=== PATIENT | female | born 1980 | race African-American/Black ===

== ENCOUNTER 2019-01-22 06:15 | Emergency (ER) | payer BC ==
--- OUTSIDE RECORDS SUMMARY | 2019-01-22 06:18 | XMS REPORT | Continuity of Care Document ---
:1980 Author Organization [facility] Information [place] Care Team Providers Name Role Phone [facility] Information [place] Unavailable Unavailable Problems Problem Status Onset Classification Date Comments Source Date Reported Morbid obesity 09/15/2018 [facility] due to excess 8 [facility] calories MORBID Active [facility] OBESITY-E66.01 8 [facility] [address], MORBID Active [facility] OBESITY 8 [place] GERD Active [address] Bariatric 09/15/2018 [facility] surgery status City Morbid obesity Active Problem 11/03/2018 [facility] ILLNESS, Active [facility] UNSPECIFIED [place] Medications Medication Details Route Status Patient Ordering Order Source Instructions Provider Date Acetaminophen 24 15 ml, PO, Q4H, Active MG/ML / Codeine PRN Pain, X 7 2017 [facility] Phosphate 2.4 day, # 120 mL, City MG/ML Oral 0 Refill(s) Solution Ofirmev 1,000 mg, 100 No Longer mL, Route: IV, Active [address] [place] [address] Drug form: INJ, City Q6H, Dosing Weight 115.17, kg, for > or=50 kg, Start date: 12/31/17 15:00:00 CDT, Duration: 4 doses or times, Stop date: 01/01/18 9:00:00 CDTNotes: Infuse over 15 minutes Do not exceed 4gm/day of acetaminophen MEDICATION WASTE Product Size: 1000 mg Product Wasted: ___ mg Ketorolac 30 mg, 1 mL, No Longer Route: IVP, Active [address] [place] [address] Drug form: INJ, City Q6H, Dosing Weight 115.17, kg, Start date: 12/31/17 15:00:00 CDT, Duration: 6 doses or times, Stop date: 01/01/18 21:00:00 CDTNotes: (Same as:Toradol) IV bolus must be given >15 seconds. Give IM administration slowly and deeply into the muscle. Not for use > 4 days MEDICATION WASTE Product Size: 30 mg Product Wasted: ___ mg propofol (ANES) Route: IV, Drug Inactive form: INJ, 2017 [facility] ONCE, Stop [facility] date: 12/31/17 10:40:00 CDT neostigmine (ANES) Route: IV, Drug Inactive form: INJ, 2017 [facility] , Stop [facility] date: 12/31/17 9:00:00 CDT glycopyrrolate Route: IV, Drug Inactive (ANES) form: INJ, 2017 [facility] , Stop [facility] date: 12/31/17 9:00:00 CDT ketOROLAC (ANES) IV, ONCE Inactive 2017 [facility] Protonix 40 mg, 1 tab, No Longer Route: PO, Drug Active 2017 [facility] form: ECTAB, [facility] Daily, Dosing Weight 115.17, kg, Start date: 12/31/17 9:00:00 CDT, Stop date: 01/29/18 9:00:00 CDTNotes: Tablet should not be chewed or crushed. (Same as: Protonix) Dilaudid 2 mg, 1 tab, No Longer Route: PO, Drug Active 2017 [facility] form: TAB, Q4H, [facility] Dosing Weight 115.17, kg, PRN Pain Score 7-10, Start date: 12/31/17 8:51:00 CDT, Stop date: 01/30/18 8:50:00 CDTNotes: (Same as: Dilaudid) Tramadol 50 mg, 1 tab, No Longer Route: PO, Drug Active 2017 [facility] form: TAB, Q4H, [facility] Dosing Weight 115.17, kg, PRN Pain Score 4-6, Start date: 12/31/17 8:51:00 CDT, Duration: 30 day, Stop date: 01/30/18 8:50:00 CDTNotes: Not to exceed 400mg/day. (Same As: Ultram) Metoprolol 5 mg, 5 mL, No Longer Route: IVP, Active [address] [place] [address] Drug form: INJ, City PRN, Dosing Weight 115.17, kg, PRN Hypertension, Systolic > 180; Diastolic > 100, Start date: 12/31/17 8:51:00 CDT, Duration: 30 day, Stop date: 01/30/18 8:50:00 CDTNotes: (Same as: Lopressor) Push over 2 minutes Promethazine 12.5 mg, 0.5 No Longer mL, Route: IM, Active [address] [place] [address] Drug form: INJ, City Q4H, Dosing Weight 115.17, kg, PRN Nausea & Vomiting, Start date: 12/31/17 8:51:00 CDT, Duration: 30 day, Stop date: 01/30/18 8:50:00 CDTNotes: Do not give IV push. (Same as: Phenergan) Ondansetron 4 mg, 1 tab, No Longer Route: PO, Drug Active [address] [place] [address] form: TABDIS, City Q6H, Dosing Weight 115.17, kg, PRN Nausea & Vomiting, Start date: 12/31/17 8:51:00 CDT, Duration: 30 day, Stop date: 01/30/18 8:50:00 CDTNotes: (Same as: Zofran ODT) Calcium Chloride 1,000 mL, Rate: No Longer 0.0014 MEQ/ML / 150 ml/hr, Active [address] [place] [address] Potassium Chloride Infuse over: [facility] 0.004 MEQ/ML / 6.7 hr, Route: Sodium Chloride IV, Dosing 0.103 MEQ/ML / Weight 115.17 Sodium Lactate kg, Total 0.028 MEQ/ML Volume: 1,000, Injectable Start date: Solution 12/31/17 8:51:00 CDT, Duration: 30 day, Stop date: 01/30/18 8:50:00 CDT, 2.32, m2 Acetaminophen 21.7 15 mL, Route: No Longer MG/ML / PO, Drug Form: [address] Hydrocodone SOLN, Dosing City Bitartrate 0.5 Weight 115.17, MG/ML Oral kg, Q4H, PRN Solution Pain Score 4-6, Start date: 12/31/17 8:51:00 CDT, Duration: 30 day, Stop date: 01/30/18 8:50:00 CDTNotes: Do not exceed 4gm/day of acetaminophen. (Same as: [place] 325/7.5) dexamethasone Route: IV, Drug Inactive (ANES) form: INJ, 2017 [facility] , Stop City date: 12/31/17 8:50:00 CDT metoclopramide Route: IV, Drug Inactive (ANES) form: INJ, 2017 [facility] , Stop City date: 12/31/17 8:50:00 CDT lidocaine (ANES) Route: IV, Drug Inactive form: INJ, 2017 [facility] , Stop City date: 12/31/17 8:30:00 CDT propofol (ANES) Route: IV, Drug Inactive form: INJ, 2017 [facility] , Stop City date: 12/31/17 8:30:00 CDT rocuronium (ANES) Route: IV, Drug Inactive form: INJ, 2017 [facility] , Stop City date: 12/31/17 8:30:00 CDT Meperidine 12.5 mg, Route: Inactive IVP, Q30Min, 2017 [facility] Dosing Weight [facility] 115.17, kg, PRN Other -See Comment, For shivering, Start date: 12/31/17 8:18:00 CDT, Duration: 2 doses or times, Stop date: Limited # of times Ondansetron 4 mg, Route: Inactive IVP, ONCE, 2017 [facility] Weight [facility] 115.17, kg, PRN Nausea & Vomiting, Start date: 12/31/17 8:18:00 CDT Promethazine 6.25 mg, Route: Inactive IVPB, ONCE, 2017 [facility] Dosing Weight [facility] 115.17, kg, PRN Nausea & Vomiting, Start date: 12/31/17 8:18:00 CDT Morphine 2 mg, Route: Inactive IVP, Q5Min, 2017 [facility] Weight [facility] 115.17, kg, PRN Pain Score 4-6, Start date: 12/31/17 8:18:00 CDT, Duration: 5 doses or times, Stop date: Limited # of times Hydromorphone 0.5 mg, Route: Inactive IVP, Q10Min, 2017 [facility] 115.17, kg, PRN Pain Score 7-10, Start date: 12/31/17 8:18:00 CDT, Duration: 4 doses or times, Stop date: Limited # of times Naloxone 0.4 mg, Route: Inactive IVP, Q2MIN, 2017 [facility] Weight [facility] 115.17, kg, PRN Narcotic Reversal, Start date: 12/31/17 8:18:00 CDT, Duration: 8 doses or times, Stop date: Limited # of times Flumazenil 0.2 mg, Route: Inactive IVP, PRN, 2017 [facility] Weight [facility] 115.17, kg, PRN Benzodiazepine Reversal, Initial dose, Start date: 12/31/17 8:18:00 CDT, Duration: 30 day, Stop date: 01/30/18 8:17:00 CDT Metoprolol 1 mg, Route: Inactive IVP, Q5Min, 2017 [facility] Weight [facility] 115.17, kg, PRN Other -See Comment, Start date: 12/31/17 8:18:00 CDT, Duration: 5 doses or times, Stop date: Limited # of times Labetalol 10 mg, Route: Inactive [facility] IVP, Q5Min, 2017 [facility] Weight [facility] 115.17, kg, PRN Elevated BP, Start date: 12/31/17 8:18:00 CDT, Duration: 5 doses or times, Stop date: Limited # of times fentaNYL (ANES) Route: IV, Drug Inactive form: INJ, 2017 [facility] , Stop City date: 12/31/17 8:15:00 CDT famotidine (ANES) Route: IV, Drug Inactive form: INJ, 2017 [facility] , Stop City date: 12/31/17 8:15:00 CDT midazolam (ANES) Route: IV, Drug Inactive form: SOLN, 2017 [facility] , Stop City date: 12/31/17 8:15:00 CDT acetaminophen Route: IV, Drug Inactive (ANES) 10 mg form: INJ, 2017 [facility] Start date: [facility] 12/31/17 8:06:00 CDT, Stop date: 12/31/17 9:06:00 CDT Zofran ODT 4 mg, Route: Inactive PO, ONCALL, 2017 [facility] Dosing Weight [facility] 115.17, kg, Start date: 12/31/17 8:00:00 CDT, Duration: 30 day, Stop date: 01/30/18 7:59:00 CDT cefOXitin (ANES) Route: IV, Drug Inactive 2000 mg form: INJ, 2017 [facility] Start date: [facility] 12/31/17 7:47:00 CDT, Stop date: 12/31/17 8:47:00 CDT Lactated Ringers Route: IV, Inactive Injection IV Total Volume: [address] [place] [address] (ANES) 1000 mL 1,000, Start City date: 12/31/17 7:39:00 CDT, Stop date: 12/31/17 8:39:00 CDT heparin 5,000 unit, 1 Inactive mL, Route: [address] [place] [address] SUB-Q, Drug [facility] form: INJ, PRE OP, Start date: 12/31/17 0:00:00 CDT, Stop date: 12/31/17 23:00:00 CDTNotes: porcine heparin Mefoxin + Sodium 2 gm, Route: No Longer Chloride 0.9% IV IVPB, PRE OP, Active [address] [place] [address] 100 mL Start date: [facility] 12/31/17 0:00:00 CDT, Stop date: 12/31/17 23:00:00 CDT, ABX Indication: Surgical ProphylaxisNote s: (Same As: Mefoxin) MEDICATION WASTE Product Size: 2000 mg Product Wasted: ___ mg ferrous sulfate 325 mg, PO, 0 Active Refill(s) 2017 [facility] Hydrochlorothiazid 12.5 mg, PO, Active e Daily, 0 2017 [facility] Refill(s) [facility] Allergies, Adverse Reactions, Alerts No Known Medication Allergies Immunizations No Data Provided for This Section Results Order Name Results Value Reference Date Interpretation Comments Source Range ELECTROLYTE AGAP 17.2 10.0 - 01/01 S 20.0 /2017 [facility] ELECTROLYTE Sodium Lvl 144 135 - 145 01/01 S /2017 [facility] ELECTROLYTE Chloride Lvl 105 95 - 109 01/01 S [facility] ELECTROLYTE Potassium 4.2 3.5 - 5.1 01/01 S Lvl /2017 [facility] ELECTROLYTE Calcium Lvl 8.9 8.5 - 10.5 01/01 S [facility] ELECTROLYTE eGFR 131 01/01 Result Comment: The [facility] eGFR is City calculated using the CKD-EPI formula. In most young, healthy individuals the eGFR will be >90 mL/min/1.73m2 . The eGFR declines with age. An eGFR of 60-89 may be normal in some populations, particularly the elderly, for whom the CKD-EPI formula has not been extensively validated. Use of the eGFR is not recommended in the following populations:< br/>
Johanna viduals with unstable creatinine concentration s, including patients and those with serious co-morbid conditions.<b r/>
Patie nts with extremes in muscle mass or diet.

The data above are obtained from the National Kidney Disease Education Program (NKDEP) which additionally recommends that when the eGFR is used in patients with extremes of body mass index for purposes of drug dosing, the eGFR should be multiplied by the estimated BMI. ELECTROLYTE CO2 26 24 - 32 01/01 S [facility] ELECTROLYTE Creatinine 0.62 0.50 - 01/01 S Lvl 1.40 [facility] ELECTROLYTE Glucose Lvl 98 70 - 99 01/01 S [facility] ELECTROLYTE BUN 8 7 - 22 01/01 [facility] HEMATOLOGY Microcyte 1+ None Seen 01/01 *ABN* /2017 [facility] (01/01/18 4:16 AM) [facility] HEMATOLOGY Segs 78.9 45.0 - 01/01 MH 75.0 [facility] HEMATOLOGY Lymphocytes 12.6 20.0 - 01/01 MH 40.0 [facility] HEMATOLOGY Monocytes 8.3 2.0 - 12.0 01/01 [facility] HEMATOLOGY Monocytes # 0.9 0.0 - 0.8 01/01 [facility] HEMATOLOGY Segs-Bands # 8.1 1.5 - 8.1 01/01 [facility] HEMATOLOGY Lymphocytes 1.3 1.0 - 5.5 01/01 MH # /2017 [facility] HEMATOLOGY Basophils 0.2 0.0 - 1.0 01/01 [facility] HEMATOLOGY RBC 4.62 4.20 - 01/01 MH 5.40 /2017 [facility] HEMATOLOGY WBC 10.3 3.7 - 10.4 01/01 /2017 [facility] HEMATOLOGY Hct 36.4 36.0 - 01/01 MH 48.0 /2017 [facility] HEMATOLOGY Hgb 12.2 12.0 - 01/01 MH 16.0 /2017 [facility] HEMATOLOGY MCHC 33.4 32.0 - 01/01 MH 36.0 /2017 [facility] HEMATOLOGY MCH 26.3 27.0 - 01/01 MH 31.0 [facility] HEMATOLOGY MCV 78.8 80.0 - 01/01 MH 98.0 /2017 [facility] HEMATOLOGY RDW 14.3 11.5 - 01/01 MH 14.5 [facility] HEMATOLOGY MPV 10.7 7.4 - 10.4 01/01 /2017 [facility] HEMATOLOGY Platelet 162 133 - 450 01/01 /2017 [facility] BLOOD BANK Antibody Negative 12/23 RESULTS Scrn (12/23/17 1:28 PM) /2017 [facility] BLOOD BANK ABO/Rh B POS 12/23 RESULTS /2017 [facility] CHEM PANEL VITAMIN B1 111.9 66.5 - 12/23 Result (THIAMINE) 200.0 /2017 Comment: [facility] WHOLE BLOOD
[facility] test was developed and its performance characteristi cs
determ ined by [facility]. It has not been cleared or
approv ed by the Food and Drug Administratio n.
Perfor med At: [facility] [place]
[address], [place] [id number]< br/>Lee Levi MD Ph:[phone] ELECTROLYTE AGAP 13.9 10.0 - 12/23 MH S 20.0 [facility] ELECTROLYTE B/C Ratio 23 6 - 25 12/23 S [facility] ELECTROLYTE Globulin 4.3 2.7 - 4.2 12/23 S [facility] ELECTROLYTE A/G Ratio 1.1 0.7 - 1.6 12/23 S [facility] ELECTROLYTE Calcium Lvl 9.8 8.5 - 10.5 12/23 S [facility] ELECTROLYTE Albumin Lvl 4.7 3.5 - 5.0 12/23 MH S [facility] ELECTROLYTE Chloride Lvl 100 95 - 109 12/23 MH S [facility] ELECTROLYTE CO2 29 24 - 32 12/23 MH S [facility] ELECTROLYTE Sodium Lvl 139 135 - 145 12/23 S [facility] ELECTROLYTE BUN 17 7 - 22 12/23 MH S [facility] ELECTROLYTE Potassium 3.9 3.5 - 5.1 12/23 MH S Lvl /2017 [facility] ELECTROLYTE eGFR 119 12/23 Result S Comment: The [facility] eGFR is City calculated using the CKD-EPI formula. In most young, healthy individuals the eGFR will be >90 mL/min/1.73m2 . The eGFR declines with age. An eGFR of 60-89 may be normal in some populations, particularly the elderly, for whom the CKD-EPI formula has not been extensively validated. Use of the eGFR is not recommended in the following populations:< br/>
Johanna viduals with unstable creatinine concentration s, including patients and those with serious co-morbid conditions.<b r/>
Patie nts with extremes in muscle mass or diet.

The data above are obtained from the National Kidney Disease Education Program (NKDEP) which additionally recommends that when the eGFR is used in patients with extremes of body mass index for purposes of drug dosing, the eGFR should be multiplied by the estimated BMI. ELECTROLYTE AST 18 0 - 37 12/23 MH S [facility] ELECTROLYTE Creatinine 0.74 0.50 - 12/23 S Lvl 1.40 [facility] ELECTROLYTE Glucose Lvl 88 70 - 99 12/23 S [facility] ELECTROLYTE ALT 35 0 - 65 12/23 MH S [facility] ELECTROLYTE Total 9.0 6.4 - 8.4 12/23 S Protein /2017 [facility] ELECTROLYTE Alk Phos 76 39 - 136 12/23 S [facility] ELECTROLYTE Bili Total 0.4 0.2 - 1.3 12/23 S [facility] ENDOCRINOLO S Preg Negative Negative 12/23 GY *NA* /2017 [facility] (12/23/17 1:25 PM) [facility] HEMATOLOGY INR 0.91 0.85 - 12/23 MH 1.17 [facility] HEMATOLOGY PT 12.3 12.0 - 12/23 MH 14.7 [facility] HEMATOLOGY PTT 27.0 22.9 - 12/23 35.8 /2017 [facility] HEMATOLOGY Platelet 181 133 - 450 12/23 /2017 [facility] HEMATOLOGY MPV 9.5 7.4 - 10.4 12/23 /2017 [facility] HEMATOLOGY RDW 14.6 11.5 - 12/23 MH 14.5 /2017 [facility] HEMATOLOGY MCHC 32.5 32.0 - 12/23 MH 36.0 /2017 [facility] HEMATOLOGY MCV 80.0 80.0 - 12/23 MH 98.0 /2017 [facility] HEMATOLOGY Hgb 13.9 12.0 - 12/23 MH 16.0 /2017 [facility] HEMATOLOGY MCH 26.0 27.0 - 12/23 MH 31.0 /2017 [facility] HEMATOLOGY Hct 42.7 36.0 - 12/23 MH 48.0 /2017 [facility] HEMATOLOGY RBC 5.34 4.20 - 12/23 MH 5.40 /2017 [facility] HEMATOLOGY WBC 10.0 3.7 - 10.4 12/23 [facility] HEMATOLOGY Lymphocytes 2.1 1.0 - 5.5 12/23 # /2017 [facility] HEMATOLOGY Segs-Bands # 6.9 1.5 - 8.1 12/23 [facility] HEMATOLOGY Basophils 0.4 0.0 - 1.0 12/23 [facility] HEMATOLOGY Eosinophils 1.5 0.0 - 4.0 12/23 [facility] HEMATOLOGY Lymphocytes 21.3 20.0 - 12/23 MH 40.0 [facility] HEMATOLOGY Monocytes 8.0 2.0 - 12.0 12/23 [facility] HEMATOLOGY Segs 68.8 45.0 - 12/23 MH 75.0 [facility] HEMATOLOGY Eosinophils 0.2 0.0 - 0.5 12/23 # /2017 [facility] HEMATOLOGY Monocytes # 0.8 0.0 - 0.8 12/23 [facility] IMMUNOLOGY HIV Ag/Ab Negative Negative 12/23 4th Gen *NA* /2017 [facility] (12/23/17 1:25 PM) [facility] URINE AND UA Nitrite Negative Negative 12/23 STOOL (12/23/17 1:00 PM) /2017 [facility] URINE AND UA Blood Negative Negative 12/23 STOOL (12/23/17 1:00 PM) /2017 [facility] URINE AND UA Bili Negative Negative 12/23 STOOL *NA* /2017 [facility] (12/23/17 1:00 PM) [facility] URINE AND UA Leuk Est Negative Negative 12/23 STOOL (12/23/17 1:00 PM) /2017 [facility] URINE AND UA Color Light Yellow Yellow 12/23 STOOL *NA* /2017 [facility] (12/23/17 1:00 PM) [facility] URINE AND UA Protein Negative Negative 12/23 STOOL mg/dL mg/dL /2017 [facility] URINE AND UA Glucose Negative Negative 12/23 STOOL mg/dL mg/dL /2017 [facility] URINE AND UA Turbidity Clear Clear 12/23 STOOL (12/23/17 1:00 PM) /2017 [facility] URINE AND UA Spec Grav 1.018 <=1.030 12/23 STOOL /2017 [facility] URINE AND UA pH 6.0 5.0 - 8.0 12/23 STOOL /2017 [facility] URINE AND UA Ketones Negative 12/23 STOOL /2017 [facility] URINE AND UA <=1.0 0.1 - 1.0 12/23 STOOL Urobilinogen mg/dL /2017 [facility] URINE AND Micro? Not Indicated 12/23 STOOL *NA* /2017 [facility] (12/23/17 1:00 PM) [facility] ELECTROLYTE POC Sodium 139 135 - 145 04 MH S /2017 [facility] ELECTROLYTE POC 3.9 3.5 - 5.1 11/03 MH S Potassium /2017 [facility] ELECTROLYTE POC Glucose 87 70 - 99 11/03 MH S /2017 [facility] ELECTROLYTE POC 14.6 12.0 - 04 MH S Hemoglobin 16.0 [facility] ELECTROLYTE POC 43.0 36.0 - 11/03 MH S Hematocrit 48.0 [facility] Pathology Reports No Data Provided for This Section Diagnostic Reports Report Value Date Source Chest 2 views DX STUDY: Chest, 2 views. 12/23/2017 [facility] COMPARISON: None HISTORY: Coughing - coughing. FINDINGS: The lungs are clear. No dense focal consolidation is seen. No pleural effusion is seen. No pneumothorax is seen. The heart is normal in size. The osseous structures are unremarkable. IMPRESSION: No acute cardiopulmonary process. Consultation Notes No Data Provided for This Section Discharge Summaries No Data Provided for This Section History and Physicals No Data Provided for This Section Vital Signs Vital Sign Value Date Comments Source Systolic (mm Hg) 154 01/01/2018 [facility] Diastolic (mm Hg) 80 01/01/2018 [facility] Heart Rate 79 01/01/2018 [facility] Respitory Rate 18 01/01/2018 [facility] Temperature Oral (F) 98.6 F 01/01/2018 [facility] Respitory Rate 16 01/01/2018 [facility] Systolic (mm Hg) 144 01/01/2018 [facility] Diastolic (mm Hg) 89 01/01/2018 [facility] Heart Rate 75 01/01/2018 [facility] Temperature Oral (F) 98.6 F 01/01/2018 [facility] Heart Rate 83 01/01/2018 [facility] Systolic (mm Hg) 152 01/01/2018 [facility] Diastolic (mm Hg) 89 01/01/2018 [facility] Respitory Rate 18 01/01/2018 [facility] Temperature Oral (F) 98.7 F 01/01/2018 [facility] BMI Calculated 43.58 12/31/2017 [facility] Weight 115.17 12/31/2017 [facility] Height 162.56 cm 12/31/2017 [facility] Height 162.56 cm 12/23/2017 [facility] Weight 112.727 12/23/2017 [facility] BMI Calculated 42.66 12/23/2017 [facility] BMI Calculated 42.31 11/03/2017 [facility] Height 162.56 cm 11/03/2017 [facility] Weight 111.818 11/03/2017 [facility] Encounters Location Location Encounter Encounter Reason Attending ADM DC Status Source Details Type Number For Provider Date Date Visit [facility] [id number] Andrew 11/03 11/03 [facility] Outpatient [facility] Inpatient [id number] [facility]/31 [facility] Outpatient [id number] 02/26 [facility] PreReg [id number] Andrew 02/26 04/16 [facility] Baudilio [facility] Procedures Procedure Code Date Perfomer Comments Source Appendectomy [id number] [facility] Bilateral tubal [id number] [facility] ligation [facility] Caesarean section [id number] [facility] Upper GI endoscopy [id number] [facility] Assessment and Plan No Data Provided for This Section Plan of Care No Data Provided for This Section Social History Social History Date Source Social History TypeResponse 12/23/2017 [facility] Alcohol Current, Frequency: 1-2 times per week. Previous treatment: None. Alcohol use interferes with work or home: No. Drinks more than intended: No. Others hurt by drinking: No. Ready to change: No. Household alcohol concerns: No. Smoking Status Former smoker; Ready to change: No; Concerns about tobacco use in household: No ; Exposure to Tobacco Smoke None; Cigarette Smoking Last 365 Days No; Reg Smoking Cessation Counseling No entered on: 12/31/17 Family History No Data Provided for This Section Advance Directives No Data Provided for This Section Functional Status No Data Provided for This Section
--- OUTSIDE RECORDS SUMMARY | 2019-01-22 06:19 | XMS REPORT | Summary of Care ---
:1980 Author Organization [facility] Address [address] [place] [address]- Encounter HQ Jayceer_raza(FIN) [id number] Date(s): 02/26/18 - 02/26/[address] [address]- Encounter Diagnosis Morbid (severe) obesity due to excess calories (Final) - 03/05/18 Bariatric surgery status (Final) - Discharge Disposition: Home or Self Care Attending Physician: Andrew Astudillo MD Referring Physician: Andrew Astudillo MD Vital Signs No data available for this section Problem List Condition Effective Dates Status Health Status Informant Morbid obesity(Confirmed) Active Allergies, Adverse Reactions, Alerts Substance Reaction Severity Status NKDA Active Medications No data available for this section Results No data available for this section Immunizations No data available for this section Procedures Procedure Date Related Diagnosis Body Site Status Appendectomy Completed Bilateral tubal ligation Completed Caesarean section Completed Upper GI endoscopy Completed Social History Social History Type Response Alcohol Current, Frequency: 1-2 times per week. Previous treatment: None. Alcohol use interferes with work or home: No. Drinks more than intended: No. Others hurt by drinking: No. Ready to change: No. Household alcohol concerns: No. Smoking Status Former smoker; Ready to change: No; Concerns about tobacco use in household: No; Exposure to Tobacco Smoke None; Cigarette Smoking Last 365 Days No; Reg Smoking Cessation Counseling No entered on: 12/31/17 Assessment and Plan No data available for this section
--- OUTSIDE RECORDS SUMMARY | 2019-01-22 06:19 | XMS REPORT | Summary of Care ---
:1980 Author Organization [facility] Address [address] [place] [address]- Encounter HQ Jayceer_raza(FIN) [id number] Date(s): 02/26/18 - 04/16/[address] [address]- Attending Physician: Andrew Astudillo MD Referring Physician: [...]
--- OUTSIDE RECORDS SUMMARY | 2019-01-22 06:19 | XMS REPORT ---
:1980 Author [facility] Address [address] [place] [address] Dr. Garduno [address] [place] [address] Care Team Providers Name Role Phone Unavailable Unavailable Unavailable Payers Payer Name Policy Type Policy Number Effective Date Expiration Date Problems This patient has no known problems. Allergies, Adverse Reactions, Alerts This patient has no known allergies or adverse reactions. Medications This patient has no known medications.
--- OUTSIDE RECORDS SUMMARY | 2019-01-22 06:19 | XMS REPORT | Summary of Care ---
:1980 Author Organization [facility] Address [address] [place] [id number]- Encounter HQ Beni(BRANDI) [id number] Date(s): 11/03/17 - 11/03/[address] [address]- Discharge Disposition: Home or Self Care Attending Physician: Andrew Astudillo MD Admitting Physician: Andrew Astudillo MD Referring Physician: Andrew Astudillo MD Vital Signs Most recent to oldest [Reference Range]: 1 Height 162.56 cm (11/03/17 10:07 AM) Weight 111.818 kg (11/03/17 10:07 AM) Body Mass Index 42.31 m2 (11/03/17 10:07 AM) Problem List No data available for this section Allergies, Adverse Reactions, Alerts Substance Reaction Severity Status NKDA Active Medications ferrous sulfate 325 mg, PO, 0 Refill(s) Start Date: 11/03/17 Status: Orderedhydrochlorothiazide 12.5 mg, PO, Daily, 0 Refill(s) Start Date: 11/03/17 Status: Ordered Results ELECTROLYTES Most recent to oldest [Reference Range]: 1 POC Sodium [135-145 mEq/L] 139 mEq/L (11/03/17 10:24 AM) POC Potassium [3.5-5.1 mEq/L] 3.9 mEq/L (11/03/17 10:24 AM) CHEM PANEL Most recent to oldest [Reference Range]: 1 POC Glucose [70-99 mg/dL] 87 mg/dL (11/03/17 10:24 AM) HEMATOLOGY Most recent to oldest [Reference Range]: 1 POC Hemoglobin [12.0-16.0 g/dL] 14.6 g/dL (11/03/17 10:24 AM) POC Hematocrit [36.0-48.0 %] 43.0 % (11/03/17 10:24 AM) Immunizations No data available for this section Procedures No data available for this section Social History No data available for this section Assessment and Plan No data available for this section
--- OUTSIDE RECORDS SUMMARY | 2019-01-22 06:19 | XMS REPORT | Summary of Care ---
:[address] [facility] Address [address] [place] [address]- Encounter HQ Beni(BRANDI) [id number] Date(s): 12/31/17 - 01/01/[address] [address]- Discharge Disposition: Home or Self Care Attending Physician: Andrew Astudillo MD Admitting Physician: Andrew Astudillo MD Referring Physician: Andrew Astudillo MD Vital Signs Most recent to oldest 1 2 3 [Reference Range]: Height 162.56 cm 162.56 cm (12/31/17 5:35 AM) (12/23/17 1:05 PM) Temperature Oral [96.4-99.1 98.6 DegF 98.6 DegF 98.7 DegF DegF] (01/01/18 12:09 PM) (01/01/18 7:30 AM) (01/01/18 4:00 AM) Blood Pressure [90-140/60-90 154/80 mmHg 144/89 mmHg 152/89 mmHg mmHg] *HI* *HI* *HI* (01/01/18 12:09 PM) (01/01/18 7:30 AM) (01/01/18 5:51 AM) Respiratory Rate [14-20 BRMIN] 18 BRMIN 16 BRMIN 18 BRMIN (01/01/18 12:09 PM) (01/01/18 7:30 AM) (01/01/18 4:00 AM) Peripheral Pulse Rate [60-100 79 bpm 75 bpm 83 bpm bpm] (01/01/18 12:09 PM) (01/01/18 7:30 AM) (01/01/18 5:51 AM) Weight 115.17 kg 112.727 kg (12/31/17 5:35 AM) (12/23/17 1:05 PM) Body Mass Index 43.58 m2 42.66 m2 (12/31/17 5:35 AM) (12/23/17 1:05 PM) Problem List Condition Effective Dates Status Health Status Informant Morbid obesity(Confirmed) Active Allergies, Adverse Reactions, Alerts Substance Reaction Severity Status NKDA Active Medications acetaminophen (ANES) 10 mg Route: IV, Drug form: INJ, Start date: 12/31/17 8:06:00 CDT, Stop date: 9:06:00 CDT Start Date: 12/31/17 Stop Date: 12/31/17 Status: Completedacetaminophen-codeine 120 mg-12 mg/5 mL oral liquid 15 ml, PO, Q4H, PRN Pain, X 7 day, # 120 mL, 0 Refill(s) Start Date: 01/01/18 Stop Date: 01/08/18 Status: Orderedacetaminophen-hydrocodone 325 mg-7.5 mg/15 mL oral solution 15 mL, Route: PO, Drug Form: SOLN, Dosing Weight 115.17, kg, Q4H, PRN Pain Score 4-6, Start date: 12/31/17 8:51:00 CDT, Duration: 30 day, Stop date: 8:50:00 CDT Notes: Do not exceed 4gm/day of acetaminophen. (Same as: [place] 325/7.5) Start Date: 12/31/17 Stop Date: 01/01/18 Status: DiscontinuedANES flumazenil 0.2 mg, Route: IVP, PRN, Dosing Weight 115.17, kg, PRN Benzodiazepine Reversal, Initial dose, Start date: 12/31/17 8:18:00 CDT, Duration: 30 day, Stop date: 8:17:00 CDT Start Date: 12/31/17 Stop Date: 12/31/17 Status: DiscontinuedANES HYDROmorphone 0.5 mg, Route: IVP, Q10Min, Dosing Weight 115.17, kg, PRN Pain Score 7-10, Start date: 12/31/17 8:18:00 CDT, Duration: 4 doses or times, Stop date: Limited # of times Start Date: 12/31/17 Stop Date: 12/31/17 Status: DiscontinuedANES labetalol 10 mg, Route: IVP, Q5Min, Dosing Weight 115.17, kg, PRN Elevated BP, Start date : 12/31/17 8:18:00 CDT, Duration: 5 doses or times, Stop date: Limited # of times Start Date: 12/31/17 Stop Date: 12/31/17 Status: DiscontinuedANES meperidine 12.5 mg, Route: IVP, Q30Min, Dosing Weight 115.17, kg, PRN Other -See Comment, For shivering, Start date: 12/31/17 8:18:00 CDT, Duration: 2 doses or times, Stop date: Limited # of times Start Date: 12/31/17 Stop Date: 12/31/17 Status: DiscontinuedANES metoprolol 1 mg, Route: IVP, Q5Min, Dosing Weight 115.17, kg, PRN Other -See Comment, Start date: 12/31/17 8:18:00 CDT, Duration: 5 doses or times, Stop date: Limited # of times Start Date: 12/31/17 Stop Date: 12/31/17 Status: DiscontinuedANES morphine Sulfate 2 mg, Route: IVP, Q5Min, Dosing Weight 115.17, kg, PRN Pain Score 4-6, Start date: 12/31/17 8:18:00 CDT, Duration: 5 doses or times, Stop date: Limited # of times Start Date: 12/31/17 Stop Date: 12/31/17 Status: DiscontinuedANES naloxone 0.4 mg, Route: IVP, Q2MIN, Dosing Weight 115.17, kg, PRN Narcotic Reversal, Start date: 12/31/17 8:18:00 CDT, Duration: 8 doses or times, Stop date: Limited # of times Start Date: 12/31/17 Stop Date: 12/31/17 Status: DiscontinuedANES ondansetron 4 mg, Route: IVP, ONCE, Dosing Weight 115.17, kg, PRN Nausea & Vomiting, Start date: 12/31/17 8:18:00 CDT Start Date: 12/31/17 Stop Date: 12/31/17 Status: DiscontinuedANES promethazine 6.25 mg, Route: IVPB, ONCE, Dosing Weight 115.17, kg, PRN Nausea & Vomiting , Start date: 12/31/17 8:18:00 CDT Start Date: 12/31/17 Stop Date: 12/31/17 Status: DiscontinuedcefOXitin (ANES) 2000 mg Route: IV, Drug form: INJ, Start date: 12/31/17 7:47:00 CDT, Stop date: 8:47:00 CDT Start Date: 12/31/17 Stop Date: 12/31/17 Status: Completeddexamethasone (ANES) Route: IV, Drug form: INJ, ONCE, Stop date: 12/31/17 8:50:00 CDT Start Date: 12/31/17 Stop Date: 12/31/17 Status: CompletedDilaudid 2 mg, 1 tab, Route: PO, Drug form: TAB, Q4H, Dosing Weight 115.17, kg, PRN Pain Score 7-10, Start date: 12/31/17 8:51:00 CDT, Stop date: 01/30/18 8:50:00 CDT Notes: (Same as: Dilaudid) Start Date: 12/31/17 Stop Date: 01/01/18 Status: Discontinuedfamotidine (ANES) Route: IV, Drug form: INJ, ONCE, Stop date: 12/31/17 8:15:00 CDT Start Date: 12/31/17 Stop Date: 12/31/17 Status: CompletedfentaNYL (ANES) Route: IV, Drug form: INJ, ONCE, Stop date: 12/31/17 8:15:00 CDT Start Date: 12/31/17 Stop Date: 12/31/17 Status: Completedglycopyrrolate (ANES) Route: IV, Drug form: INJ, ONCE, Stop date: 12/31/17 9:00:00 CDT Start Date: 12/31/17 Stop Date: 12/31/17 Status: Completedheparin 5,000 unit, 1 mL, Route: SUB-Q, Drug form: INJ, PRE OP, Start date: 12/31/17 0: 00:00 CDT, Stop date:12/31/17 23:00:00 CDT Notes: porcine heparin Start Date: 12/31/17 Stop Date: 12/31/17 Status: CompletedketOROLAC 30 mg, 1 mL, Route: IVP, Drug form: INJ, Q6H, Dosing Weight 115.17, kg, Start date: 12/31/17 15:00:00 CDT, Duration: 6 doses or times, Stop date: 01/01/18 21: 00:00 CDT Notes: (Same as:Toradol) IV bolus must be given >15 seconds. Give IM administration slowly and deeply into the muscle.Not for use > 4 days MEDICATION WASTE Product Size: 30 mgProduct Wasted: ___ mg Start Date: 12/31/17 Stop Date: 01/01/18 Status: DiscontinuedketOROLAC (ANES) IV, ONCE Start Date: 12/31/17 Stop Date: 12/31/17 Status: CompletedLactated Ringers Injection IV (ANES) 1000 mL Route: IV, Total Volume: 1,000, Start date: 12/31/17 7:39:00 CDT, Stop date: 8:39:00 CDT Start Date: 12/31/17 Stop Date: 12/31/17 Status: CompletedLactated Ringers Injection IV 1,000 mL 1,000 mL, Rate: 150 ml/hr, Infuse over: 6.7 hr, Route: IV, Dosing Weight 115.17 kg, Total Volume: 1,000, Start date: 12/31/17 8:51:00 CDT, Duration: 30 day, Stop date: 01/30/18 8:50:00 CDT, 2.32, m2 Start Date: 12/31/17 Stop Date: 01/01/18 Status: Discontinuedlidocaine (ANES) Route: IV, Drug form: INJ, ONCE, Stop date: 12/31/17 8:30:00 CDT Start Date: 12/31/17 Stop Date: 12/31/17 Status: CompletedMefoxin + Sodium Chloride 0.9% IV 100 mL 2 gm, Route: IVPB, PRE OP, Start date: 12/31/17 0:00:00 CDT, Stop date: 23:00:00 CDT, ABX Indication: Surgical Prophylaxis Notes: (Same As: Mefoxin) MEDICATION WASTE Product Size: 2000 mgProduct Wasted: ___ mg Start Date: 12/31/17 Stop Date: 01/01/18 Status: Discontinuedmetoclopramide (ANES) Route: IV, Drug form: INJ, ONCE, Stop date: 12/31/17 8:50:00 CDT Start Date: 12/31/17 Stop Date: 12/31/17 Status: Completedmetoprolol 5 mg, 5 mL, Route: IVP, Drug form: INJ, PRN, Dosing Weight 115.17, kg, PRN Hypertension, Systolic > 180; Diastolic > 100, Start date: 12/31/17 8:51: 00 CDT, Duration: 30 day, Stop date: 01/30/18 8:50:00 CDT Notes: (Same as: Lopressor)Push over 2 minutes Start Date: 12/31/17 Stop Date: 01/01/18 Status: Discontinuedmidazolam (ANES) Route: IV, Drug form: SOLN, ONCE, Stop date: 12/31/17 8:15:00 CDT Start Date: 12/31/17 Stop Date: 12/31/17 Status: Completedneostigmine (ANES) Route: IV, Drug form: INJ, ONCE, Stop date: 12/31/17 9:00:00 CDT Start Date: 12/31/17 Stop Date: 12/31/17 Status: CompletedOfirmev 1,000 mg, 100 mL, Route: IV, Drug form: INJ, Q6H, Dosing Weight 115.17, kg, for > or=50 kg, Startdate: 12/31/17 15:00:00 CDT, Duration: 4 doses or times, Stop date: 01/01/18 9:00:00 CDT Notes: Infuse over 15 minutesDo not exceed 4gm/day of acetaminophen MEDICATION WASTE ProductSize: 1000 mgProduct Wasted: ___ mg Start Date: 12/31/17 Stop Date: 01/01/18 Status: Completedondansetron 4 mg, 1 tab, Route: PO, Drug form: TABDIS, Q6H, Dosing Weight 115.17, kg, PRN Nausea & Vomiting,Start date: 12/31/17 8:51:00 CDT, Duration: 30 day, Stop date: 01/30/18 8:50:00 CDT Notes: (Same as: Zofran ODT) Start Date: 12/31/17 Stop Date: 01/01/18 Status: Discontinuedpromethazine 12.5 mg, 0.5 mL, Route: IM, Drug form: INJ, Q4H, Dosing Weight 115.17, kg, PRN Nausea & Vomiting, Start date: 12/31/17 8:51:00 CDT, Duration: 30 day, Stop date: 01/30/18 8:50:00 CDT Notes: Do not give IV push. (Same as: Phenergan) Start Date: 12/31/17 Stop Date: 01/01/18 Status: Discontinuedpropofol (ANES) Route: IV, Drug form: INJ, ONCE, Stop date: 12/31/17 8:30:00 CDT Start Date: 12/31/17 Stop Date: 12/31/17 Status: Completedpropofol (ANES) Route: IV, Drug form: INJ, ONCE, Stop date: 12/31/17 10:40:00 CDT Start Date: 12/31/17 Stop Date: 12/31/17 Status: CompletedProtonix 40 mg, 1 tab, Route: PO, Drug form: ECTAB, Daily, Dosing Weight 115.17, kg, Start date: 12/31/17 9:00:00 CDT, Stop date: 01/29/18 9:00:00 CDT Notes: Tablet should not be chewed or crushed.(Same as: Protonix) Start Date: 12/31/17 Stop Date: 01/01/18 Status: Discontinuedrocuronium (ANES) Route: IV, Drug form: INJ, ONCE, Stop date: 12/31/17 8:30:00 CDT Start Date: 12/31/17 Stop Date: 12/31/17 Status: Completedtramadol 50 mg, 1 tab, Route: PO, Drug form: TAB, Q4H, Dosing Weight 115.17, kg, PRN Pain Score 4-6, Start date: 12/31/17 8:51:00 CDT, Duration: 30 day, Stop date: 01/30/18 8:50:00 CDT Notes: Not to exceed 400mg/day. (Same As: Ultram) Start Date: 12/31/17 Stop Date: 01/01/18 Status: DiscontinuedZofran ODT 4 mg, Route: PO, ONCALL, Dosing Weight 115.17, kg, Start date: 12/31/17 8:00:00 CDT, Duration: 30 day, Stop date: 01/30/18 7:59:00 CDT Start Date: 12/31/17 Stop Date: 12/31/17 Status: Completed Results BLOOD BANK RESULTS Most recent to oldest [Reference Range]: 1 2 ABO/Rh B POS *Unknown* (12/23/17 1:28 PM) Antibody Scrn Negative (12/23/17 1:28 PM) ELECTROLYTES Most recent to oldest [Reference Range]: 1 2 Sodium Lvl [135-145 mEq/L] 144 mEq/L 139 mEq/L (01/01/18 4:16 AM) (12/23/17 1:25 PM) Potassium Lvl [3.5-5.1 mEq/L] 4.2 mEq/L 3.9 mEq/L (01/01/18 4:16 AM) (12/23/17 1:25 PM) Chloride Lvl [95-109 mEq/L] 105 mEq/L 100 mEq/L (01/01/18 4:16 AM) (12/23/17 1:25 PM) CO2 [24-32 mEq/L] 26 mEq/L 29 mEq/L (01/01/18 4:16 AM) (12/23/17 1:25 PM) AGAP [10.0-20.0 mEq/L] 17.2 mEq/L 13.9 mEq/L (01/01/18 4:16 AM) (12/23/17 1:25 PM) CHEM PANEL Most recent to oldest [Reference Range]: 1 2 Creatinine Lvl [0.50-1.40 mg/dL] 0.62 mg/dL 0.74 mg/dL (01/01/18 4:16 AM) (12/23/17 1:25 PM) eGFR 131 mL/min/1.73m2 1 119 mL/min/1.73m2 2 *NA* *NA* (01/01/18 4:16 AM) (12/23/17 1:25 PM) BUN [7-22 mg/dL] 8 mg/dL 17 mg/dL (01/01/18 4:16 AM) (12/23/17 1:25 PM) B/C Ratio [6-25] 23 (12/23/17 1:25 PM) Glucose Lvl [70-99 mg/dL] 98 mg/dL 88 mg/dL (01/01/18 4:16 AM) (12/23/17 1:25 PM) Total Protein [6.4-8.4 g/dL] 9.0 g/dL *HI* (12/23/17 1:25 PM) Albumin Lvl [3.5-5.0 g/dL] 4.7 g/dL (12/23/17 1:25 PM) Globulin [2.7-4.2 g/dL] 4.3 g/dL *HI* (12/23/17 1:25 PM) A/G Ratio [0.7-1.6] 1.1 (12/23/17 1:25 PM) Calcium Lvl [8.5-10.5 mg/dL] 8.9 mg/dL 9.8 mg/dL (01/01/18 4:16 AM) (12/23/17 1:25 PM) ALT [0-65 unit/L] 35 unit/L (12/23/17 1:25 PM) AST [0-37 unit/L] 18 unit/L (12/23/17 1:25 PM) Alk Phos [39-136 unit/L] 76 unit/L (12/23/17 1:25 PM) Bili Total [0.2-1.3 mg/dL] 0.4 mg/dL (12/23/17 1:25 PM) Vitamin B1 [66.5-200.0 nMol/L] 111.9 nMol/L 3 *NA* (12/23/17 1:25 PM) 1Result Comment: The eGFR is calculated using the CKD-EPI formula. In most young , healthy individualsthe eGFR will be >90 mL/min/1.73m2. The eGFR declines with age. An eGFR of 60-89 may be normal insome populations, particularly the elderly, for whom the CKD-EPI formula has not been extensively validated. Use of the eGFR is not recommended in the following populations: Individuals with unstable creatinine concentrations, including patients and those with serious co-morbid conditions. Patients with extremes in muscle mass or diet. The data above are obtained from the National Kidney Disease Education Program ( NKDEP) which additionally recommends that when the eGFR is used in patients with extremes of body mass index for purposesof drug dosing, the eGFR should be multiplied by the estimated BMI.2Result Comment: The eGFR is calculated using the CKD-EPI formula. In most young, healthy individualsthe eGFR will be >90 mL/min/1.73m2. The eGFR declines with age. An eGFR of 60-89 may be normal insome populations, particularly the elderly, for whom the CKD-EPI formula has not been extensively validated. Use of the eGFR is not recommended in the following populations: Individuals with unstable creatinine concentrations, including patients and those with serious co-morbid conditions. Patients with extremes in muscle mass or diet. The data above are obtained from the National Kidney Disease Education Program ( NKDEP) which additionally recommends that when the eGFR is used in patients with extremes of body mass index for purposesof drug dosing, the eGFR should be multiplied by the estimated BMI.3Result Comment: This test was developed and its performance characteristics determined by [employer]. It has not been cleared or approved by the Food and Drug Administration. Performed At: [address] [id number] Lee Levi MD Ph:[phone] Most recent to oldest [Reference Range]: 1 2 S Preg [Negative] Negative *NA* (12/23/17 1:25 PM) URINE AND STOOL Most recent to oldest [Reference Range]: 1 2 UA Turbidity [Clear] Clear (12/23/17 1:00 PM) UA Color [Yellow] Light Yellow *NA* (12/23/17 1:00 PM) UA pH [5.0-8.0] 6.0 (12/23/17 1:00 PM) UA Spec Grav [<=1.030] 1.018 (12/23/17 1:00 PM) UA Glucose [Negative mg/dL] Negative mg/dL *NA* (12/23/17 1:00 PM) UA Blood [Negative] Negative (12/23/17 1:00 PM) UA Ketones Negative *NA* (12/23/17 1:00 PM) UA Protein [Negative mg/dL] Negative mg/dL (12/23/17 1:00 PM) UA Urobilinogen [0.1-1.0 mg/dL] <=1.0 mg/dL *NA* (12/23/17 1:00 PM) UA Bili [Negative] Negative *NA* (12/23/17 1:00 PM) UA Leuk Est [Negative] Negative (12/23/17 1:00 PM) UA Nitrite [Negative] Negative (12/23/17 1:00 PM) Micro? Not Indicated *NA* (12/23/17 1:00 PM) IMMUNOLOGY Most recent to oldest [Reference Range]: 1 2 HIV Ag/Ab 4th Gen [Negative] Negative *NA* (12/23/17 1:25 PM) HEMATOLOGY Most recent to oldest [Reference Range]: 1 2 WBC [3.7-10.4 K/CMM] 10.3 K/CMM 10.0 K/CMM (01/01/18 4:16 AM) (12/23/17 1:25 PM) RBC [4.20-5.40 M/CMM] 4.62 M/CMM 5.34 M/CMM (01/01/18 4:16 AM) (12/23/17 1:25 PM) Hgb [12.0-16.0 g/dL] 12.2 g/dL 13.9 g/dL (01/01/18 4:16 AM) (12/23/17 1:25 PM) Hct [36.0-48.0 %] 36.4 % 42.7 % (01/01/18 4:16 AM) (12/23/17 1:25 PM) MCV [80.0-98.0 fL] 78.8 fL 80.0 fL *LOW* (12/23/17 1:25 PM) (01/01/18 4:16 AM) MCH [27.0-31.0 pg] 26.3 pg 26.0 pg *LOW* *LOW* (01/01/18 4:16 AM) (12/23/17 1:25 PM) MCHC [32.0-36.0 g/dL] 33.4 g/dL 32.5 g/dL (01/01/18 4:16 AM) (12/23/17 1:25 PM) RDW [11.5-14.5 %] 14.3 % 14.6 % (01/01/18 4:16 AM) *HI* (12/23/17 1:25 PM) MPV [7.4-10.4 fL] 10.7 fL 9.5 fL *HI* (12/23/17 1:25 PM) (01/01/18 4:16 AM) Platelet [133-450 K/CMM] 162 K/CMM 181 K/CMM (01/01/18 4:16 AM) (12/23/17 1:25 PM) Segs [45.0-75.0 %] 78.9 % 68.8 % *HI* (12/23/17 1:25 PM) (01/01/18 4:16 AM) Lymphocytes [20.0-40.0 %] 12.6 % 21.3 % *LOW* (12/23/17 1:25 PM) (01/01/18 4:16 AM) Monocytes [2.0-12.0 %] 8.3 % 8.0 % (01/01/18 4:16 AM) (12/23/17 1:25 PM) Eosinophils [0.0-4.0 %] 1.5 % (12/23/17 1:25 PM) Basophils [0.0-1.0 %] 0.2 % 0.4 % (01/01/18 4:16 AM) (12/23/17 1:25 PM) Segs-Bands # [1.5-8.1 K/CMM] 8.1 K/CMM 6.9 K/CMM (01/01/18 4:16 AM) (12/23/17 1:25 PM) Lymphocytes # [1.0-5.5 K/CMM] 1.3 K/CMM 2.1 K/CMM (01/01/18 4:16 AM) (12/23/17 1:25 PM) Monocytes # [0.0-0.8 K/CMM] 0.9 K/CMM 0.8 K/CMM *HI* (12/23/17 1:25 PM) (01/01/18 4:16 AM) Eosinophils # [0.0-0.5 K/CMM] 0.2 K/CMM (12/23/17 1:25 PM) [employer] [None Seen] 1+ *ABN* (01/01/18 4:16 AM) PT [12.0-14.7 seconds] 12.3 seconds (12/23/17 1:25 PM) INR [0.85-1.17] 0.91 (12/23/17 1:25 PM) PTT [22.9-35.8 seconds] 27.0 seconds (12/23/17 1:25 PM) Immunizations No data available for this section [...]
--- OUTSIDE RECORDS SUMMARY | 2019-01-22 06:19 | XMS REPORT ---
:1980 Author Organization [employer] Care Team Providers Name Role Phone MontejoLayo Provider Role Unavailable Allergies, Adverse Reactions, Alerts Substance Reaction Event Type N.K.D.A. 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 Active Problem BMI 40.0-44.9, adult Z68.41 Active Problem Abnormal cervical Papanicolaou R87.619 Active smear, unspecified abnormal pap finding Problem Iron deficiency anemia due to D50.0 Active chronic blood loss Problem Tobacco use disorder F17.200 Active Assessment Tobacco use disorder F17.200 Active Assessment Iron deficiency anemia due to D50.0 Active chronic blood loss Assessment BMI 40.0-44.9, adult Z68.41 Active Assessment Seasonal allergic rhinitis, J30.2 Active unspecified trigger Assessment 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 75342533723 325 (65 Fe) MG Active 1 tablet Orally Once a day Linzess [facility] 12521793933 72 MCG Orally Active 1 capsule Once a day on an empty stomach Montelukast Sodium [facility] 19656819562 10 MG Orally Active 1 tablet Once a day in the evening Hydrochlorothiazide [facility] 41778536689 12.5 MG Orally Inactive 1 tablet Once a day in the morning Results No Known Results Summary Purpose [employer] Submission
[2019-01-22 07:05] LABS: Absolute Lymphocytes (CBC) 1.3 K/uL (0.7-4.9); Basophils % 0.4 % (0-1.3); Eosinophils % 1.3 % (0-4.4); Hematocrit 38.5 % (36.0-45.0); Lymphocytes % 22.8 % (15.3-44.8); MPV 10.1 fL (7.6-11.3); Monocytes % 8.2 % (3.3-12.3); RBC Red Blood Cell Count 4.72 M/uL (3.86-4.86)
[2019-01-22 07:21] LABS: ALT/SGPT 22 U/L (12-78); AST/SGOT 15 U/L (15-37); Albumin 3.7 g/dL (3.4-5.0); Alkaline Phosphatase 45 U/L (45-117); BUN Blood Urea Nitrogen 13 mg/dL (7-18); Bicarbonate 28 mmol/L (21-32); Bilirubin Direct 0.1 mg/dL (0-0.2); Bilirubin Total 0.5 mg/dL (0.2-1.0); Glucose Level 90 mg/dL (74-106); Potassium 3.7 mmol/L (3.5-5.1); Protein, Total 6.6 g/dL (6.4-8.2); Sodium Level 142 mmol/L (136-145)
[2019-01-22 08:43] LABS: Specific Gravity >= 1.030 (1.005-1.030); Urine Blood 3+ (NEG); Urine Glucose NEGATIVE (NEG); Urine Protein 2+ (NEG); Urine Specific Gravity >=1.030 (1.005-1.030)
[2019-01-22 08:49] LABS: Urine Bilirubin NEG (NEG); Urine Microscopic Reflex ORDER UMIC
[2019-01-22 08:54] LABS: Urine Bacteria NONE SEEN /HPF (<20); Urine Culture Reflex Order REFLEXED; Urine RBC >50 /HPF (NONE SEEN)
[2019-01-22 08:55] LABS: Urine Appearance CLOUDY; Urine Color RED
--- NOTE | 2019-01-22 09:30 | ER ---
Nurse's Notes [facility] Name: Christopher Billy Age: 38 yrs Sex: Female : 1980 Arrival Date: 01/22/2019 Time: 06:18 Bed 13 Private MD: Diagnosis: Abnormal uterine and vaginal bleeding, unspecified Presentation: 01/22 06:31 Presenting complaint: Patient states: I haven't had a menstrual cycle since 2017, last tl1 night I went to bed with back pain and woke up this morning with vaginal bleeding. I have gone thru 4 pads in 1 hour. I started taking progesterone and Estradiol about 1 month ago because my Dr thought I was going thru menopause. Transition of care: patient was not received from another setting of care. Onset of symptoms was January 22, 2019. Risk Assessment: Do you want to hurt yourself or someone else? Patient reports no desire to harm self or others. Initial Sepsis Screen: Does the patient meet any 2 criteria? No. Patient's initial sepsis screen is negative. Does the patient have a suspected source of infection? No. Patient's initial sepsis screen is negative. Care prior to arrival: None. 06:31 Method Of Arrival: Ambulatory tl1 06:31 Acuity: VIJAYA 3 tl1 Triage Assessment: 07:00 General: Appears in no apparent distress. comfortable, Behavior is calm, cooperative, cc3 appropriate for age. Pain: Complains of pain in back. : Reports vaginal bleeding that is moderate flow. 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 - Social history:: Smoking status: Patient uses tobacco products, denies chronic smoking, but will smoke occasionally, Patient uses alcohol, occasionally. - Ebola Screening: : Patient negative for fever greater than or equal to 101.5 degrees Fahrenheit, and additional compatible Ebola Virus Disease symptoms Patient denies exposure to infectious person Patient denies travel to an Ebola-affected area in the 21 days before illness onset. Screenin:00 Abuse screen: Denies threats or abuse. Denies injuries from another. Nutritional cc3 screening: No deficits noted. Tuberculosis screening: No symptoms or risk factors identified. Fall Risk Ambulatory Aid- None/Bed Rest/Nurse Assist (0 pts). Gait- Normal/Bed Rest/Wheelchair (0 pts) Mental Status- Oriented to own ability (0 pts). Assessment: 07:00 General: Appears in no apparent distress. comfortable, Behavior is calm, cooperative. rb1 Pain: Complains of pain in suprapubic area Pain radiates to back. Neuro: Level of Consciousness is awake, alert, obeys commands, Oriented to person, place, time, situation. Cardiovascular: Capillary refill < 3 seconds is brisk in bilateral fingers. Respiratory: Airway is patent Respiratory effort is even, unlabored, Respiratory pattern is regular, symmetrical. GI: No signs and/or symptoms were reported involving the gastrointestinal system. : Reports vaginal bleeding that is bright red. : Derm: Skin is dry, Skin is normal, Skin temperature is warm. 08:00 Reassessment: Patient appears in no apparent distress at this time. No changes from rb1 previously documented assessment. 09:00 Reassessment: Patient appears in no apparent distress at this time. Patient and/or rb1 family updated on plan of care and expected duration. Pain level reassessed. Patient is alert, oriented x 3, equal unlabored respirations, skin warm/dry/pink. Pain 6/10. 10:00 Reassessment: Patient appears in no apparent distress at this time. No changes from rb1 previously documented assessment. Vital Signs: 06:35 BP 129 / 88; Pulse 64; Resp 17; Temp 98.5; Pulse Ox 99% ; Weight 77.11 kg; Height 5 ft. tl1 4 in. (162.56 cm); Pain 6/10; 06:58 BP 124 / 80 LA Supine; Pulse 62; Pulse Ox 100% on R/A; oe 06:59 BP 125 / 93 Sitting; Pulse 73; Pulse Ox 100% on R/A; oe 07:00 BP 120 / 96 LA Standing; Pulse 70; Pulse Ox 100% on R/A; oe 08:00 BP 123 / 87; Pulse 54; Resp 16; Temp 98.4(O); Pulse Ox 100% on R/A; Pain 4/10; rb1 09:00 BP 124 / 83; Pulse 52; Resp 17; Temp 97.7(TE); Pulse Ox 100% ; Pain 6/10; rb1 10:00 BP 124 / 87; Pulse 69; Resp 17; Temp 98.2(O); Pulse Ox 100% ; Pain 6/10; rb1 06:35 Body Mass Index 29.18 (77.11 kg, 162.56 cm) tl1 ED Course: 06:18 Patient arrived in ED. do 06:29 Tejinder Conrad NP is PHCP. pm1 06:29 Eron Ha MD is Attending Physician. pm1 06:33 Triage completed. tl1 06:35 Arm band placed on right wrist. tl1 06:55 Inserted saline lock: 20 gauge in right antecubital area, using aseptic technique. cc3 Blood collected. 06:57 Sharon Martell is Primary Nurse. cc3 07:00 Patient has correct armband on for positive identification. Bed in low position. Call cc3 light in reach. Side rails up X 1. Pulse ox on. NIBP on. 07:00 Report given to CHELSEY Taylor. cc3 07:27 Claudia Hernandez, RN is Primary Nurse. rb1 10:05 No provider procedures requiring assistance completed. IV discontinued, intact, rb1 bleeding controlled, No redness/swelling at site. Pressure dressing applied. Administered Medications: No medications were administered Outcome: 09:29 Discharge ordered by MD. pm1 10:05 Patient left the ED. rb1 10:05 Discharged to home ambulatory. rb1 10:05 Condition: stable 10:05 Discharge instructions given to patient, Instructed on discharge instructions, follow up and referral plans. Demonstrated understanding of instructions, follow-up care, Prescriptions given X none Signatures: Leesa Jaeger RN RN tl1 Claudia Hernandez, CHELSEY RN rb1 Liliana Renner Patrick, JOEY HOUSE DIRECTOR pm1 Eugenio Martinez Charlene cc3 Corrections: (The following items were deleted from the chart) 07:10 07:00 : Reports vaginal bleeding that is cc3 cc3 10:17 10:16 Patient left the ED. rb1 rb1
--- NOTE | 2019-01-22 09:30 | EDPHYS ---
Physician Documentation [facility] Name: Christopher Billy Age: 38 yrs Sex: Female : 1980 Arrival Date: 01/22/2019 Time: 06:18 Bed 13 Private MD: FAUZIA Physician Eron Ha HPI: 01/22 06:44 This 38 yrs old Black Female presents to ER via Ambulatory with complaints of Vaginal pm1 Bleeding, Abdominal Pain, Back Pain, Leg Pain. 06:44 The patient presents with vaginal bleeding that is like her menses. Onset: The pm1 symptoms/episode began/occurred this morning. Modifying factors: The symptoms are alleviated by nothing, the symptoms are aggravated by nothing. Associated signs and symptoms: Pertinent positives: abdominal cramping, Pertinent negatives: diarrhea, dysuria, fever, nausea, vomiting. Severity of symptoms: in the emergency department the symptoms have improved. The patient is not sexually active. The patient's method of control includes BTL and patient with onset of menopause 2 years ago. The patient has not experienced similar symptoms in the past. The patient has been recently seen by a physician: patient placed on HRT 1 month ago for hot flashes and has lost 20 pounds since then with gastric sleeve. 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 - Social history:: Smoking status: Patient uses tobacco products, denies chronic smoking, but will smoke occasionally, Patient uses alcohol, occasionally. - Ebola Screening: : Patient negative for fever greater than or equal to 101.5 degrees Fahrenheit, and additional compatible Ebola Virus Disease symptoms Patient denies exposure to infectious person Patient denies travel to an Ebola-affected area in the 21 days before illness onset. ROS: 06:44 Positive for vaginal bleeding, Negative for pelvic pain, flank pain, vaginal pm1 discharge. 06:44 Constitutional: Negative for fever, chills, and weight loss, Eyes: Negative for injury, pain, redness, and discharge, ENT: Negative for injury, pain, and discharge, Neck: Negative for injury, pain, and swelling, Cardiovascular: Negative for chest pain, palpitations, and edema, Respiratory: Negative for shortness of breath, cough, wheezing, and pleuritic chest pain, MS/Extremity: Negative for injury and deformity, Skin: Negative for injury, rash, and discoloration, Neuro: Negative for headache, weakness, numbness, tingling, and seizure. 06:44 Abdomen/GI: Positive for abdominal cramps, Negative for nausea, vomiting, and diarrhea, constipation. 06:44 Back: Positive for cramping. Exam: 06:44 Constitutional: This is a well developed, well nourished patient who is awake, alert, pm1 and in no acute distress. Head/Face: Normocephalic, atraumatic. Eyes: Pupils equal round and reactive to light, extra-ocular motions intact. Lids and lashes normal. Conjunctiva and sclera are non-icteric and not injected. Cornea within normal limits. Periorbital areas with no swelling, redness, or edema. ENT: Nares patent. No nasal discharge, no septal abnormalities noted. Tympanic membranes are normal and external auditory canals are clear. Oropharynx with no redness, swelling, or masses, exudates, or evidence of obstruction, uvula midline. Mucous membranes moist. Neck: Trachea midline, no thyromegaly or masses palpated, and no cervical lymphadenopathy. Supple, full range of motion without nuchal rigidity, or vertebral point tenderness. No Meningismus. Chest/axilla: Normal chest wall appearance and motion. Nontender with no deformity. No lesions are appreciated. Cardiovascular: Regular rate and rhythm with a normal S1 and S2. No gallops, murmurs, or rubs. No pulse deficits. Respiratory: Lungs have equal breath sounds bilaterally, clear to auscultation and percussion. No rales, rhonchi or wheezes noted. No increased work of breathing, no retractions or nasal flaring. Abdomen/GI: Soft, non-tender, with normal bowel sounds. No distension or tympany. No guarding or rebound. No evidence of tenderness throughout. Back: No spinal tenderness. No costovertebral tenderness. Full range of motion. Skin: Warm, dry with normal turgor. Normal color with no rashes, no lesions, and no evidence of cellulitis. MS/ Extremity: Pulses equal, no cyanosis. Neurovascular intact. Full, normal range of motion. 06:44 Neuro: Orientation: is normal, Motor: is normal, moves all fours. Vital Signs: 06:35 BP 129 / 88; Pulse 64; Resp 17; Temp 98.5; Pulse Ox 99% ; Weight 77.11 kg; Height 5 ft. tl1 4 in. (162.56 cm); Pain 6/10; 06:58 BP 124 / 80 LA Supine; Pulse 62; Pulse Ox 100% on R/A; oe 06:59 BP 125 / 93 Sitting; Pulse 73; Pulse Ox 100% on R/A; oe 07:00 BP 120 / 96 LA Standing; Pulse 70; Pulse Ox 100% on R/A; oe 08:00 BP 123 / 87; Pulse 54; Resp 16; Temp 98.4(O); Pulse Ox 100% on R/A; Pain 4/10; rb1 09:00 BP 124 / 83; Pulse 52; Resp 17; Temp 97.7(TE); Pulse Ox 100% ; Pain 6/10; rb1 10:00 BP 124 / 87; Pulse 69; Resp 17; Temp 98.2(O); Pulse Ox 100% ; Pain 6/10; rb1 06:35 Body Mass Index 29.18 (77.11 kg, 162.56 cm) tl1 MDM: 06:31 Patient medically screened. pm1 09:29 Data reviewed: vital signs. Data interpreted: Pulse oximetry: on room air is 100 %. pm1 Interpretation: normal. Counseling: I had a detailed discussion with the patient and/or guardian regarding: the historical points, exam findings, and any diagnostic results supporting the discharge/admit diagnosis, lab results, the need for outpatient follow up, to return to the emergency department if symptoms worsen or persist or if there are any questions or concerns that arise at home. 09:35 ED course: Patient taking hormone replacement therapy due to menopause and hot flashes. pm1 Patient has lost 20 pounds since starting hormones, therefore patient likely needs adjustment to HRT to address abnormal uterine bleeding. 01/22 06:44 Order name: Basic Metabolic Panel; Complete Time: 07:41 pm1 07 06:44 Order name: CBC with Diff; Complete Time: 07:41 pm1 01/22 06:44 Order name: Hepatic Function; Complete Time: 07:41 pm1 01/22 08:21 Order name: UA; Complete Time: 09:28 aa5 01/22 06:27 Order name: Urine Test (obtain specimen); Complete Time: 10:09 01/22 06:27 Order name: Urine Dipstick-Ancillary (obtain specimen); Complete Time: 10:10 01/22 06:44 Order name: IV Saline Lock; Complete Time: 06:58 pm1 01/22 06:44 Order name: Labs collected and sent; Complete Time: 06:58 pm1 01/22 08:32 Order name: Test, Urine; Complete Time: 09:28 EDNY 01/22 08:32 Order name: Urine Microscopic Only; Complete Time: 09:28 EDMS 01/22 08:55 Order name: Urine Culture EDNY 01/22 06:44 Order name: Orthostatic Blood Pressure; Complete Time: 07:10 pm1 Administered Medications: No medications were administered Disposition: 01/23 01:32 Co-signature as Attending Physician, Eron Ha MD. Disposition: 01/22/19 09:29 Discharged to Home. Impression: Abnormal uterine and vaginal bleeding, unspecified. - Condition is Stable. - Discharge Instructions: Abnormal Uterine Bleeding. - Medication Reconciliation Form, Thank You Letter, Antibiotic Education, Prescription Opioid Use form. - Follow up: Emergency Department; When: As needed; Reason: Worsening of condition. Follow up: Private Physician; When: 2 - 3 days; Reason: Recheck today's complaints, Continuance of care, Re-evaluation by your physician. - Problem is new. - Symptoms have improved. 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 EDMS EDMS 08:34 08:12 UA MICROSCOPIC+U.LAB.BRZ ordered. EDMS EDMS 08:52 08:51 Urine Microscopic Only ordered. EDMS EDMS 10:16 09:29 01/22/2019 09:29 Discharged to Home. Impression: Abnormal uterine and vaginal rb1 bleeding, unspecified. Condition is Stable. Forms are Medication Reconciliation Form, Thank You Letter, Antibiotic Education, Prescription Opioid Use. Follow up: Emergency Department; When: As needed; Reason: Worsening of condition. Follow up: Private Physician; When: 2 - 3 days; Reason: Recheck today's complaints, Continuance of care, Re-evaluation by your physician. Problem is new. Symptoms have improved. pm1
== END 2019-01-22 10:16 | disposition home or self-care (01) ==
LOC: ER 06:15
DX: N93.9 Abnormal uterine and vaginal bleeding, unspecified (principal); Z72.0 Tobacco use
CPT/HCPCS: 36415; 80048; 80076; 81003; 81015; 81025; 85025; 87086; 87088; 99284